=== PATIENT | female | born 1985 | race Caucasian/White ===

== ENCOUNTER → 2025-06-29 12:57 | Outpatient (REF) | payer MEDICARE, OTHER, SELFPAY | LOC: RAD 12:57 | PROVIDERS: ATTENDING PHYSICIAN Nurse Practitioner Family | DX: R56.9 Unspecified convulsions (principal); E88.41 MELAS syndrome; I63.9 Cerebral infarction, unspecified; G81.14 Spastic hemiplegia affecting left nondominant side | CPT/HCPCS: 70496; Q9967 ==